=== PATIENT | female | born 1985 | race Caucasian/White ===

== ENCOUNTER 2022-04-02 21:43 | Observation (INO) | payer OTHER ==
[2022-04-02 22:36] VITALS: BMI 43.2
[2022-04-02] MEDS ORDERED: Dextrose 50% Abboject 50 ML SYRINGE SLOW IVP PRN (22:37)
[2022-04-02] MEDS ORDERED: Morphine 2 MG/ML VIAL SLOW IVP PRN (22:37)
[2022-04-02] MEDS ORDERED: hydrALAZINE 20 MG/ML VIAL SLOW IVP PRN (22:37)
[2022-04-02] MEDS ORDERED: Calcium Carbonate 500 MG ChewTAB PO PRN (22:37)
[2022-04-02] MEDS ORDERED: Dextrose 5% in Water 1,000 ML IV PRN (22:37)
[2022-04-02] MEDS ORDERED: Morphine 4 MG/ML VIAL SLOW IVP PRN (22:37)
[2022-04-02] MEDS ORDERED: Mag-Al 1200 mg/1200 mg/30 ML UDCUP PO PRN (22:37)
[2022-04-02] MEDS ORDERED: Ondansetron PF 4 MG/2 ML Vial IVP PRN (22:37)
[2022-04-02] MEDS ORDERED: Promethazine HCl 25 MG/ML VIAL IM PRN (22:37)
[2022-04-02] MEDS ORDERED: Ondansetron ODT 4 MG TAB PO PRN (22:48)
[2022-04-02] MEDS: Ketorolac Tromethamine 30 MG/ML VIAL IVP SCH (23:12)
[2022-04-02] MEDS: Lactated Ringer's 1,000 ML IV SCH (23:12)
[2022-04-03 05:32] LABS: #Eosinphils 0.2 thou/uL (0.0-0.7); #Lymphocytes 1.3 thou/uL (1.20-3.40); #Monocytes 0.6 thou/uL (0.11-0.59); #Neutrophils 4.4 thou/uL (1.40-6.50); %Eosinophils 2.6 % (0.0-10.0); %Lymphocytes 19.6 % (21.0-51.0); %Monocytes 9.5 % (0.0-10.0); %Neutrophils 68.3 % (42.0-75.0); Mean Corpuscular HGB CONC 33.8 g/dL (32.0-36.0); Mean Corpuscular Volume 88.6 fL (78.0-98.0); Platelet Count 266 thou/uL (130-400); RBC Distribution Width 11.4 % (11.5-14.5); Red Blood Cell (RBC) Count 3.35 mill/uL (4.20-5.40); White Blood Cell (WBC) Count 6.4 thou/uL (4.8-10.8)
[2022-04-03] MEDS: Ketorolac Tromethamine 30 MG/ML VIAL IVP SCH ×4 (05:37→23:53)
[2022-04-03] MEDS: Levothyroxine Sodium 125 MCG TAB PO SCH (05:39)
[2022-04-03] MEDS: Lactated Ringer's 1,000 ML IV SCH ×3 (05:41→22:30)
[2022-04-03 05:53] LABS: ALT (SGPT) 336 U/L (8-55); AST (SGOT) 206 U/L (5-34); Albumin 3.4 g/dL (3.5-5.0); Alkaline Phosphatase 202 U/L (40-110); Anion Gap 13 mmol/L (10-20); BUN (Urea Nitrogen) 5 mg/dL (7.0-18.7); Bilirubin, Total 1.7 mg/dL (0.2-1.2); Calc. Creatinine Clearance 298 mL/min (70-130); Calcium 8.5 mg/dL (7.8-10.44); Carbon Dioxide 21 mmol/L (22-29); Chloride 104 mmol/L (98-107); Estimated GFR 120; Globulin 2.5 g/dL (2.4-3.5); Glucose 93 mg/dL (70-105); Lipase 31 U/L (8-78); Potassium 3.6 mmol/L (3.5-5.1); Protein, Total 5.9 g/dL (6.0-8.3); Sodium 134 mmol/L (136-145)
[2022-04-03] MEDS: Enoxaparin Sodium 40 MG/0.4 ML SYRINGE SC SCH (08:20)
[2022-04-03] MEDS: Bupropion 150 MG SR TAB PO SCH (08:20)
[2022-04-03] MEDS: Famotidine 20 MG TAB PO SCH ×2 (08:20→19:55)
[2022-04-03] MEDS: Famotidine/PF 20 mg/2ml Vial SLOW IVP SCH ×2 (08:22→19:51)
[2022-04-03] MEDS ORDERED: Piperacillin/Tazobactam 3.375 GM in Sodium Chloride 0.9% 100 ML IVPB SCH ×2 (13:45→14:00)
[2022-04-03] MEDS: Piperacillin/Tazobactam 3.375 GM in Sodium Chloride 0.9% 100 ML IVPB SCH (17:36)
[2022-04-04] MEDS: Piperacillin/Tazobactam 3.375 GM in Sodium Chloride 0.9% 100 ML IVPB SCH ×2 (02:33→10:32)
[2022-04-04] MEDS: Levothyroxine Sodium 125 MCG TAB PO SCH (05:32)
[2022-04-04] MEDS: Ketorolac Tromethamine 30 MG/ML VIAL IVP SCH ×2 (05:32→12:00)
[2022-04-04 05:45] LABS: #Eosinphils 0.3 thou/uL (0.0-0.7); #Lymphocytes 1.2 thou/uL (1.20-3.40); #Monocytes 0.5 thou/uL (0.11-0.59); #Neutrophils 4.2 thou/uL (1.40-6.50); %Basophils 0.4 % (0.0-1.0); %Eosinophils 4.2 % (0.0-10.0); %Lymphocytes 19.7 % (21.0-51.0); %Neutrophils 67.7 % (42.0-75.0); Hemoglobin 9.8 g/dL (12.0-16.0); Mean Corpuscular HGB CONC 34.9 g/dL (32.0-36.0); Mean Corpuscular Hemoglobin 30.2 pg (27.0-31.0); Mean Corpuscular Volume 86.3 fL (78.0-98.0); Mean Platelet Volume 7.1 fL (7.4-10.4); Platelet Count 258 thou/uL (130-400); RBC Distribution Width 11.3 % (11.5-14.5); Red Blood Cell (RBC) Count 3.26 mill/uL (4.20-5.40); White Blood Cell (WBC) Count 6.2 thou/uL (4.8-10.8)
[2022-04-04 06:10] LABS: ALT (SGPT) 252 U/L (8-55); AST (SGOT) 78 U/L (5-34); Albumin 3.4 g/dL (3.5-5.0); Alkaline Phosphatase 165 U/L (40-110); Anion Gap 13 mmol/L (10-20); BUN (Urea Nitrogen) 5 mg/dL (7.0-18.7); Bilirubin, Total 1.2 mg/dL (0.2-1.2); Calc. Creatinine Clearance 258 mL/min (70-130); Calcium 8.8 mg/dL (7.8-10.44); Carbon Dioxide 23 mmol/L (22-29); Chloride 103 mmol/L (98-107); Estimated GFR 116; Globulin 2.7 g/dL (2.4-3.5); Glucose 85 mg/dL (70-105); Potassium 3.4 mmol/L (3.5-5.1); Protein, Total 6.1 g/dL (6.0-8.3); Sodium 136 mmol/L (136-145)
[2022-04-04] MEDS: Famotidine 20 MG TAB PO SCH (08:44)
[2022-04-04] MEDS: Famotidine/PF 20 mg/2ml Vial SLOW IVP SCH (08:44)
[2022-04-04] MEDS: Enoxaparin Sodium 40 MG/0.4 ML SYRINGE SC SCH (08:45)
[2022-04-04] MEDS: Bupropion 150 MG SR TAB PO SCH (08:45)
[2022-04-04 11:45] VITALS: BP 129/74; TEMP 97.9
== END 2022-04-04 14:15 | disposition home or self-care (01) ==
LOC: SJJU 22:16 → INTOOBSV 22:16
PROVIDERS: ADMIT Specialist; ATTEND Specialist
DX: R10.9 Unspecified abdominal pain (principal); R11.2 Nausea with vomiting, unspecified; E66.01 Morbid (severe) obesity due to excess calories; Z68.41 Body mass index [BMI] 40.0-44.9, adult; Z79.899 Other long term (current) drug therapy; Z79.890 Hormone replacement therapy; Z88.5 Allergy status to narcotic agent; Z98.84 Bariatric surgery status
CPT/HCPCS: 36415; 80053; 83690; 85025; 96372; 96374; 96375; 96376; G0378; J1650; J1885; J2405; J2543; J3490; J7120

== ENCOUNTER 2022-04-07 02:03 | Inpatient (IN) | payer OTHER ==
[2022-04-07] MEDS ORDERED: Famotidine/PF 20 mg/2ml Vial ONE (02:24)
[2022-04-07] MEDS ORDERED: Morphine 4 MG/ML VIAL ONE (02:24)
[2022-04-07 02:56] LABS: BHCG - Serum Negative (NEGATIVE); Pregs Control Background? CLEAR/WHITE (CLR/WHITE); Pregs Control Bar Appear? YES (CONTROL BAR)
[2022-04-07 02:59] LABS: #Eosinphils 0.3 thou/uL (0.0-0.7); #Lymphocytes 1.3 thou/uL (1.20-3.40); #Monocytes 0.6 thou/uL (0.11-0.59); #Neutrophils 5.6 thou/uL (1.40-6.50); %Basophils 0.5 % (0.0-1.0); %Eosinophils 3.4 % (0.0-10.0); %Lymphocytes 16.3 % (21.0-51.0); %Monocytes 7.2 % (0.0-10.0); %Neutrophils 72.7 % (42.0-75.0); Hemoglobin 12.1 g/dL (12.0-16.0); Mean Corpuscular HGB CONC 36.1 g/dL (32.0-36.0); Mean Corpuscular Hemoglobin 31.1 pg (27.0-31.0); Mean Corpuscular Volume 86.2 fL (78.0-98.0); Platelet Count 409 thou/uL (130-400); RBC Distribution Width 11.8 % (11.5-14.5); White Blood Cell (WBC) Count 7.7 thou/uL (4.8-10.8)
[2022-04-07 03:11] LABS: ALT (SGPT) 117 U/L (8-55); AST (SGOT) 24 U/L (5-34); Albumin 4.3 g/dL (3.5-5.0); Alkaline Phosphatase 134 U/L (40-110); Anion Gap 21 mmol/L (10-20); BUN (Urea Nitrogen) 7 mg/dL (7.0-18.7); Bilirubin, Total 0.6 mg/dL (0.2-1.2); Calc. Creatinine Clearance 0 mL/min (70-130); Calcium 9.5 mg/dL (7.8-10.44); Carbon Dioxide 15 mmol/L (22-29); Chloride 103 mmol/L (98-107); Estimated GFR 104; Globulin 3.5 g/dL (2.4-3.5); Glucose 82 mg/dL (70-105); Lipase 64 U/L (8-78); Potassium 3.7 mmol/L (3.5-5.1); Protein, Total 7.8 g/dL (6.0-8.3); Sodium 135 mmol/L (136-145)
[2022-04-07] MEDS ORDERED: Metoclopramide HCl 10 MG/2 ML VIAL ONE (03:46)
[2022-04-07] MEDS ORDERED: Fentanyl 100 MCG/2 ML VIAL ONE (07:10)
[2022-04-07] MEDS ORDERED: Ondansetron PF 4 MG/2 ML Vial IVP PRN (12:06)
[2022-04-07] MEDS ORDERED: Acetaminophen 325 MG TAB PO PRN (12:34)
[2022-04-07 13:28] VITALS: BMI 41.5
[2022-04-07] MEDS: Ketorolac Tromethamine 30 MG/ML VIAL IVP PRN ×2 (13:36→19:55)
[2022-04-07] MEDS: Sodium Chloride 0.9% 1,000 ML IV SCH ×2 (13:37→22:00)
[2022-04-07] MEDS ORDERED: Pantoprazole 40 MG VIAL IVP SCH (15:30)
[2022-04-07] MEDS ORDERED: Iopamidol-370 76% 500 ML 1 ML ONE (16:04)
[2022-04-07] MEDS: Ondansetron PF 4 MG/2 ML Vial IVP PRN (20:09)
[2022-04-07] MEDS: Pantoprazole 40 MG VIAL IVP SCH (21:00)
[2022-04-07] MEDS ORDERED: Fentanyl 100 MCG/2 ML VIAL SLOW IVP SCH (21:45)
[2022-04-07] MEDS: Amoxicillin/Potassium Clav 600 mg/5 ml Oral Suspension PO SCH (22:00)
[2022-04-08] MEDS: Sodium Chloride 0.9% 1,000 ML IV SCH ×3 (00:19→20:08)
[2022-04-08] MEDS: Ketorolac Tromethamine 30 MG/ML VIAL IVP PRN (04:43)
[2022-04-08 05:01] LABS: SARS-CoV-2 NAA Rapid Test Not Detected (NotDetected)
[2022-04-08 06:41] LABS: #Eosinphils 0.4 thou/uL (0.0-0.7); #Lymphocytes 1.5 thou/uL (1.20-3.40); #Monocytes 0.5 thou/uL (0.11-0.59); #Neutrophils 3.5 thou/uL (1.40-6.50); %Basophils 0.3 % (0.0-1.0); %Lymphocytes 25.7 % (21.0-51.0); %Monocytes 8.1 % (0.0-10.0); %Neutrophils 59.8 % (42.0-75.0); Hemoglobin 11.4 g/dL (12.0-16.0); Mean Corpuscular HGB CONC 34.6 g/dL (32.0-36.0); Mean Corpuscular Hemoglobin 29.7 pg (27.0-31.0); Mean Corpuscular Volume 85.7 fL (78.0-98.0); Mean Platelet Volume 6.6 fL (7.4-10.4); Platelet Count 371 thou/uL (130-400); RBC Distribution Width 11.9 % (11.5-14.5); Red Blood Cell (RBC) Count 3.85 mill/uL (4.20-5.40); White Blood Cell (WBC) Count 5.9 thou/uL (4.8-10.8)
[2022-04-08 07:05] LABS: ALT (SGPT) 85 U/L (8-55); AST (SGOT) 21 U/L (5-34); Albumin 4.1 g/dL (3.5-5.0); Alkaline Phosphatase 118 U/L (40-110); Anion Gap 16 mmol/L (10-20); BUN (Urea Nitrogen) 6 mg/dL (7.0-18.7); Bilirubin, Total 0.6 mg/dL (0.2-1.2); Calc. Creatinine Clearance 246 mL/min (70-130); Calcium 9.2 mg/dL (7.8-10.44); Carbon Dioxide 15 mmol/L (22-29); Chloride 107 mmol/L (98-107); Estimated GFR 116; Globulin 3.1 g/dL (2.4-3.5); Glucose 90 mg/dL (70-105); Potassium 3.7 mmol/L (3.5-5.1); Protein, Total 7.2 g/dL (6.0-8.3); Sodium 134 mmol/L (136-145)
[2022-04-08] MEDS: Ondansetron PF 4 MG/2 ML Vial IVP PRN ×2 (07:53→20:01)
[2022-04-08] MEDS ORDERED: Famotidine 20 MG TAB PO SCH (09:00)
[2022-04-08] MEDS ORDERED: Lidocaine 1% PF 5 ML VIAL ONE (09:04)
[2022-04-08] MEDS ORDERED: Midazolam HCl 2 mg/2 ml Vial ONE (09:04)
[2022-04-08] MEDS ORDERED: PROPOFOL 200 MG/20 ML VIAL ONE (09:04)
[2022-04-08] MEDS ORDERED: fentaNYL Citrate/PF 100 MCG/2 ML SYRINGE ONE (09:05)
[2022-04-08] MEDS: Pantoprazole 40 MG VIAL IVP SCH ×2 (10:42→21:44)
[2022-04-08] MEDS: Fentanyl 100 MCG/2 ML VIAL SLOW IVP PRN ×3 (12:29→20:09)
[2022-04-08] MEDS: Amoxicillin/Potassium Clav 600 mg/5 ml Oral Suspension PO SCH ×2 (12:45→21:43)
[2022-04-08] MEDS: Simethicone Chewable 80 MG TAB PO PRN (16:05)
[2022-04-08] MEDS ORDERED: Amoxicillin/Potassium Clav 600 mg/5 ml Oral Suspension PO SCH (21:00)
[2022-04-08] MEDS: Sucralfate 1 GM/10 ML UDCUP PO SCH (23:03)
[2022-04-09] MEDS: Fentanyl 100 MCG/2 ML VIAL SLOW IVP PRN ×5 (03:23→22:20)
[2022-04-09] MEDS: Sodium Chloride 0.9% 1,000 ML IV SCH ×3 (06:42→18:23)
[2022-04-09] MEDS: Pantoprazole 40 MG VIAL IVP SCH ×2 (09:17→21:27)
[2022-04-09] MEDS: Ondansetron PF 4 MG/2 ML Vial IVP PRN ×3 (09:17→18:07)
[2022-04-09] MEDS ORDERED: Ondansetron ODT 4 MG TAB PO PRN (11:46)
[2022-04-09] MEDS ORDERED: Hydrocodone-Acetamin 15 ML UDCUP PO PRN (11:46)
[2022-04-09] MEDS: Simethicone Chewable 80 MG TAB PO PRN ×2 (12:03→21:24)
[2022-04-09] MEDS: Sucralfate 1 GM/10 ML UDCUP PO SCH ×2 (12:03→22:17)
[2022-04-09] MEDS: Amoxicillin/Potassium Clav 600 mg/5 ml Oral Suspension PO SCH ×2 (14:17→22:18)
[2022-04-09] MEDS ORDERED: Scopolamine 1.5 mg/72 hour Patch TD SCH (21:00)
[2022-04-09] MEDS: Ketorolac Tromethamine 30 MG/ML VIAL IVP PRN (21:26)
[2022-04-10] MEDS: Fentanyl 100 MCG/2 ML VIAL SLOW IVP PRN ×3 (04:20→12:49)
[2022-04-10] MEDS ORDERED: Levothyroxine Sodium 125 MCG TAB PO SCH (06:00)
[2022-04-10] MEDS ORDERED: Scopolamine 1.5 mg/72 hour Patch TD SCH (09:00)
[2022-04-10] MEDS ORDERED: Bupropion 150 MG SR TAB PO SCH (09:00)
[2022-04-10] MEDS: Sucralfate 1 GM/10 ML UDCUP PO SCH (09:11)
[2022-04-10] MEDS: Ondansetron PF 4 MG/2 ML Vial IVP PRN (09:12)
[2022-04-10] MEDS: Pantoprazole 40 MG VIAL IVP SCH (09:12)
[2022-04-10] MEDS: Amoxicillin/Potassium Clav 600 mg/5 ml Oral Suspension PO SCH (10:01)
[2022-04-10] MEDS: Sodium Chloride 0.9% 1,000 ML IV SCH (12:47)
[2022-04-10 13:37] VITALS: BP 121/85; TEMP 97.9
== END 2022-04-10 13:31 | disposition home or self-care (01) | DRG 381 ==
LOC: ERS 02:03 → T4-B 08:49 → UNDODISOB 12:35 → OBSVTOIN 04-09 15:35
PROVIDERS: ADMIT Internal Medicine; ATTEND Internal Medicine
PROC: 0DJ08ZZ Inspection of Upper Intestinal Tract, Via Natural or Artificial Opening Endoscopic (ICD-10-PCS; principal; 2022-04-08)
DX: K28.9 Gastrojejunal ulcer, unspecified as acute or chronic, without hemorrhage or perforation (principal); Z68.41 Body mass index [BMI] 40.0-44.9, adult; T81.41XA Infection following a procedure, superficial incisional surgical site, initial encounter; K21.00 Gastro-esophageal reflux disease with esophagitis, without bleeding; E66.01 Morbid (severe) obesity due to excess calories; E03.9 Hypothyroidism, unspecified; F32.A Depression, unspecified; F41.9 Anxiety disorder, unspecified; Y83.8 Other surgical procedures as the cause of abnormal reaction of the patient, or of later complication, without mention of misadventure at the time of the procedure; R74.8 Abnormal levels of other serum enzymes; K76.0 Fatty (change of) liver, not elsewhere classified; G89.18 Other acute postprocedural pain; Z98.84 Bariatric surgery status; Z88.5 Allergy status to narcotic agent; Z79.899 Other long term (current) drug therapy; Z79.890 Hormone replacement therapy; Z90.49 Acquired absence of other specified parts of digestive tract; Z90.89 Acquired absence of other organs
CPT/HCPCS: 36415; 71275; 74177; 74181; 78226; 80053; 83690; 84484; 84703; 85025; 93005; 96375; 96376; 97139; A9537; C9113; G0378; J1885; J2250; J2270; J2405; J2704; J2765; J3010; J7050; Q0162; Q9967; S0028; U0002